=== PATIENT | female | born 2000 | race Caucasian/White ===

== ENCOUNTER 2020-08-29 12:31 | Observation (INO) ==
[2020-08-29 14:54] LABS: Basophils # (auto) 0.03 K/uL (0-0.2); Basophils % (auto) 0.4 %; Eosinophils # (auto) 0.06 K/uL (0-0.5); Eosinophils % (auto) 0.8 %; Hematocrit (blood only) 37.2 % (37-47); Hemoglobin 12.6 g/dL (12.0-16.0); Immature Granulocytes # (auto) 0.05 K/uL (0.00-0.02); Immature Granulocytes % (auto) 0.6 %; Lymphocytes # (auto) 1.31 K/uL (1.2-3.4); Lymphocytes % (auto) 16.5 %; Mean Corpuscular Hemoglobin 29.9 pg (25-34); Mean Corpuscular Hgb Conc 33.9 g/dL (32-36); Mean Corpuscular Volume 88.2 fL (80-100); Mean Platelet Volume 10.2 fL (7.4-10.4); Monocytes # (auto) 0.68 K/uL (0.11-0.59); Monocytes % (auto) 8.6 %; Neutrophils # (auto) 5.79 K/uL (1.4-6.5); Neutrophils % (auto) 73.1 %; Platelet Count 249 K/uL (130-400); RDW Standard Deviation 38.6 fL (36.4-46.3); Red Blood Count 4.22 M/uL (4.2-5.4); White Blood Count 7.92 K/uL (4.8-10.8)
[2020-08-29 15:09] LABS: Alanine Aminotransferase 15 U/L (12-78); Albumin Level 3.3 gm/dl (3.4-5.0); Aspartate Aminotransferase 8 U/L (15-37); BUN Creatinine Ratio 8.9 (10-20); Bilirubin Direct 0.2 mg/dl (0-0.2); Blood Urea Nitrogen 8 mg/dl (7-18); Calcium 9.6 mg/dl (8.5-10.1); Carbon Dioxide 26 mmol/L (21-32); Chloride 104 mmol/L (98-107); Creatinine Clr Calc Pharmacy 87.3 ml/min; Est GFR (African American) 103.8; Est GFR (Non-African American) 89.6; Glucose 87 mg/dl (70-99); Potassium 3.6 mmol/L (3.5-5.1); Sodium 138 mmol/L (136-145)
[2020-08-29 15:15] LABS: Alkaline Phosphatase 48 U/L (45-117); Bilirubin,Total 0.5 mg/dl (0.2-1); Lipase 4247 U/L (73-393); Troponin I < 0.015 ng/ml (0-0.045)
[2020-08-29 15:18] LABS: INR 0.9 (0.9-1.1); Prothrombin Time 9.6 Seconds (9.0-12.0)
--- NOTE | 2020-08-29 15:23 | XRay Report ---
XR abdomen 2V w PA chest CLINICAL HISTORY: epigastric pain sob COMPARISON STUDY: No previous studies for comparison. FINDINGS: Erect chest reveals no free air. There is no focal pulmonary consolidation. Erect and supin e views the abdomen reveal no abnormally dilated loops of large or small bowel. There are no transiti on zones to indicate bowel obstruction. There are no calcifications suspicious for urinary tract calc lexis. IMPRESSION: No evidence of bowel obstruction. No evidence of free air. ACT 112: Negative or not required by law. Electronically signed by: Gerardo Villanueva M.D. 08/29/2020 3:21 PM
[2020-08-29 15:47] LABS: D Dimer 530 ug/L FEU (0-500)
[2020-08-29] MEDS ORDERED: SODIUM CHLORIDE 0.9% 1000ML 1,000 ML IV ONE (16:00)
[2020-08-29] MEDS ORDERED: OPTIRAY 320 125ml IV ONE (16:57)
[2020-08-29 17:06] LABS: Appearance Urine Clear (Clear); Bacteria Urine Automated Negative (Negative); Bilirubin Urine Negative (Negative); Blood Urine Negative (Negative); Color Urine Yellow; Epithelial Cell Urine Auto >30 /lpf (0-5); Glucose Urine UA Negative (Negative); Ketones Urine Negative (Negative); Leukocyte Esterase Urine 1+ (Negative); Nitrite Urine Negative (Negative); Protein Urine Negative (Negative); RBC Urine Automated 0-4 /hpf (0-4); Specific Gravity Urine 1.017 (1.000-1.030); Urobilinogen Urine Negative (Negative); pH Urine 6.5 (4.5-7.5)
--- NOTE | 2020-08-29 17:36 | CT Scan Report ---
CT ANGIOGRAM OF THE CHEST; CT SCAN OF THE ABDOMEN AND PELVIS WITH IV CONTRAST CLINICAL HISTORY: Epigastric abdominal pain. COMPARISON STUDY: Radiographs of the chest and abdomen performed the same day 08/29/2020. TECHNIQUE: Following the IV administration of 119 of Optiray 320, CT angiogram of the chest is perfor med from the upper abdomen to the thoracic inlet utilizing the pulmonary embolus protocol. Images are reviewed in the axial, sagittal, coronal planes. 3-D MIPS images are created and assessed. Subsequen tly, CT scan of the abdomen and pelvis was performed from the lung bases to the proximal femora. Imag es are reviewed in the axial, sagittal, and coronal planes. IV contrast was administered without comp lication. A dose lowering technique was utilized adhering to the principles of ALARA. CT DOSE: 536.66 mGy.cm FINDINGS: CHEST: Thyroid: Imaged portions of the thyroid gland are normal in size and attenuation. Thoracic aorta: The thoracic aorta is normal in caliber and demonstrates standard 3-vessel arch anato my. No dissection is seen. Pulmonary vasculature: The pulmonary trunk is normal in caliber. There are no filling defects identif ied in the main, lobar, or segmental pulmonary arteries to indicate pulmonary embolus. Heart: The heart is normal in size and configuration, and without pericardial effusion. Lungs and pleural spaces: The lungs and pleural spaces are clear. Mediastinum: There is no mediastinal lymphadenopathy. Kelly: Clear. Axillae: There is no axillary lymphadenopathy. Bony thorax: No lytic or blastic lesions are identified. ABDOMEN AND PELVIS: Liver: The contrast-enhanced liver is normal in size, contour, and attenuation. There is no intrahepa tic or ductal dilatation. The hepatic veins and portal veins are patent. Gallbladder: Unremarkable. Spleen: Normal in size and attenuation. Pancreas: Unremarkable. Adrenal glands: Unremarkable. Kidneys: The contrast enhanced kidneys are normal in size and without hydronephrosis. The kidneys enh ance symmetrically. There is a tiny nonobstructing right renal calculus. Abdominal vasculature: The abdominal aorta is normal in course and caliber. Bowel: The small bowel and colon are normal in course and caliber. The appendix is normal as visuali zed. Peritoneum: There is no intraperitoneal free air or abdominal ascites. Lymphadenopathy: None. Pelvic viscera: The bladder, uterus, and adnexa are normal as visualized. Skeletal structures: No lytic or blastic lesions are seen. IMPRESSION: 1. There is no evidence of pulmonary embolus in the main, lobar, or segmental pulmonary arteries. 2. The lungs are clear. 3. There are no acute infectious or inflammatory findings in the abdomen or pelvis. ACT 112: Negative or not required by law. Electronically signed by: Jerrod Escoto M.D. 08/29/2020 5:35 PM
[2020-08-29] MEDS ORDERED: CLINDAMYCIN HCL 150 MG CAP PO ONE (18:25)
[2020-08-29] MEDS: LACTATED RINGER'S 1,000 ML IV SCH (18:49)
--- NOTE | 2020-08-29 19:05 | History & Physical Report ---
Date of Service August 29, 2020 Assessment & Plan (1) Serum lipase elevation: Lipase- 4247 - No abscess or pancreas edema noted on CT scan, no other evidence of organ dysfunction - May be early in the course - Lipids pending, no family history of hypertriglyceridemia - No Gall stone - ? 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 Last weekend the patient experienced episode of fever, chills, and throat discomfort. This was similar to what she experienced with her [employer] LOCATION MANAGER so she went to urgent care. At urgent care she was diagnosed with pharyngitis and placed on Cleocin. The patient symptoms of her sore throat improved, but she started experiencing abdominal pain over the past 2 days. The pain is located in the center of her abdomen, it is sharp and stabbing in nature. It is not does not get worse with eating or not eating. The pain in constant in nature. She drinks on the weekend with variable amount depending on the weekend. 5 drinks this past Wednesday. The patient last ate this morning at 0800 with a bagel. HCG negative, last menstrual period is last week and is normally regular, Covid test is negative. Allergies Allergy/AdvReac Type Severity Reaction Status Date / Time No Known Allergies Allergy Verified 08/29/20 15:11 Home Medications Medication Instructions Recorded Confirmed Type clindamycin HCl 300 mg PO QID 08/29/20 08/29/20 History drospirenone-ethinyl estradiol 1 tab PO PM 08/29/20 08/29/20 History Past Med/Surg History Medical History (Updated 08/29/20 @ 19:20 by ODESSA Iniguez) COVID-19 No significant past medical history Sore throat Surgical History (Updated 08/29/20 @ 19:09 by ODESSA Iniguez) H/O wisdom tooth extraction History of nasal septoplasty History of rhinoplasty Family History (Updated 08/29/20 @ 19:11 by ODESSA Iniguez) Mother Hypertension Dyslipidemia Father Hypertension Dyslipidemia Social History Smoking Status: Never smoker Hx Alcohol Use: Yes Alcohol type: beer, wine and hard liquor Hx Substance Use: No Preferred Language: Italian Communication Ability: Effective Replenishment Analyst Required: No Beliefs That Will Affect Care: None Current Living Situation: Alone Other Information That Helps Us Care for You: No Feels Safe at Home: Yes Safety Concerns: Feels Safe At This Time Assistive Devices: None Review of Systems Review of Systems: REVIEW OF SYSTEMS: Constitutional: No current fever, sweats or chills Eyes: No diplopia, no worsening or blurred vision ENT: (+) pain swallowing, throat sore, normal hearing, no trouble swallowing Respiratory: No cough, sputum, dyspnea at rest or on exertion Cardiovascular: No chest pain, tightness or palpitations Abdomen: (+) pain, nausea, vomiting, diarrhea or constipation Musculoskeletal: No joint pain, calf pain, swelling Neurologic: No weakness, numbness/tingling, or balance problems Psychiatric: No anxiety or depression Skin: No rash or itch Physical Exam Physical Exam: PHYSICAL EXAM: General: awake, alert, no apparent distress Head: Normocephalic, atraumatic ENT: PERRL, EOMI, no pharyngeal exudate, mucous membranes moist Neuro: AAO x 3, speech clear and appropriate, strength intact bilaterally 5/5, sensation intact and equal all extremities. Chest: equal rise and fall of the chest, no accessory muscle use, no heaves or thrills, Clear to auscultation, on room air, Cardiac: Regular rate and rhythm, telemetry reviewed, skin warm dry, cap refill <3 seconds, peripheral pulses +2 GI: NABS x 4 quadrants, soft, tender to palpation, no rebound, guarding or tenderness, negative yo's, poon turners, negative heel tap : Spontaneously voiding, no pain, no CVA tenderness, Extremities: Normal inspection, no peripheral edema or erythema, calfs nontender to palpation Psych: Normal mood and affect Skin: no rash or erythema Results & Data Results & Data ([facility]) Vital Signs (Past 12 Hours) Vital Signs Temp Pulse Pulse Resp BP BP Pulse Ox 08/29/20 18:22 88 18 133/79 97 08/29/20 14:48 99 08/29/20 12:34 36.8 C 113 H 17 136/[address] ANGIOGRAM OF THE CHEST; CT SCAN OF THE ABDOMEN AND PELVIS WITH IV CONTRAST CLINICAL HISTORY: Epigastric abdominal pain. COMPARISON STUDY: Radiographs of the chest and abdomen performed the same day 08/29/2020. TECHNIQUE: Following the IV administration of 119 of Optiray 320, CT angiogram of the chest is performed from the upper abdomen to the thoracic inlet utilizing the pulmonary embolus protocol. Images are reviewed in the axial, sagittal, coronal planes. 3-D MIPS images are created and assessed. Subsequently, CT scan of the abdomen and pelvis was performed from the lung bases to the proximal femora. Images are reviewed in the axial, sagittal, and coronal planes. IV contrast was administered without complication. A dose lowering technique was utilized adhering to the principles of ALARA. CT DOSE: 536.66 mGy.cm FINDINGS: CHEST: Thyroid: Imaged portions of the thyroid gland are normal in size and attenuation. Thoracic aorta: The thoracic aorta is normal in caliber and demonstrates standard 3-vessel arch anatomy. No dissection is seen. Pulmonary vasculature: The pulmonary trunk is normal in caliber. There are no filling defects identified in the main, lobar, or segmental pulmonary arteries to indicate pulmonary embolus. Heart: The heart is normal in size and configuration, and without pericardial effusion. Lungs and pleural spaces: The lungs and pleural spaces are clear. Mediastinum: There is no mediastinal lymphadenopathy. Kelly: Clear. Axillae: There is no axillary lymphadenopathy. Bony thorax: No lytic or blastic lesions are identified. ABDOMEN AND PELVIS: Liver: The contrast-enhanced liver is normal in size, contour, and attenuation. There is no intrahepatic or ductal dilatation. The hepatic veins and portal veins are patent. Gallbladder: Unremarkable. Spleen: Normal in size and attenuation. Pancreas: Unremarkable. Adrenal glands: Unremarkable. Kidneys: The contrast enhanced kidneys are normal in size and without hydronephrosis. The kidneys enhance symmetrically. There is a tiny nonobstructing right renal calculus. Abdominal vasculature: The abdominal aorta is normal in course and caliber. Bowel: The small bowel and colon are normal in course and caliber. The appendix is normal as visualized. Peritoneum: There is no intraperitoneal free air or abdominal ascites. Lymphadenopathy: None. Pelvic viscera: The bladder, uterus, and adnexa are normal as visualized. Skeletal structures: No lytic or blastic lesions are seen. FINDINGS: Erect chest reveals no free air. There is no focal pulmonary consolidation. Erect and supine views the abdomen reveal no abnormally dilated loops of large or small bowel. There are no transition zones to indicate bowel obstruction. There are no calcifications suspicious for urinary tract calculi. IMPRESSION: No evidence of bowel obstruction. No evidence of free air. XR abdomen 2V w PA chest CLINICAL HISTORY: epigastric pain sob COMPARISON STUDY: No previous studies for comparison. FINDINGS: Erect chest reveals no free air. There is no focal pulmonary consolidation. Erect and supine views the abdomen reveal no abnormally dilated loops of large or small bowel. There are no transition zones to indicate bowel obstruction. There are no calcifications suspicious for urinary tract calculi. IMPRESSION: No evidence of bowel obstruction. No evidence of free air. Medications Administered Lactated Ringer's (Lr) 1,000 mls @ 250 mls/hr IV .Q4H MERVIN Stop: 09/28/20 18:14 Last Admin: 08/29/20 18:49 Dose: 250 mls/hr Documented by: [id number] Discontinued Medications Clindamycin HCl (Clindamycin Hcl 150 Mg Cap) 300 mg PO NOW ONE Stop: 08/29/20 18:26 Last Admin: 08/29/20 18:49 Dose: 300 mg Documented by: [id number] Sodium Chloride (Nss 1000ml) 1,000 mls @ 999 mls/hr IV .Q1H1M ONE Stop: 08/29/20 17:00 Last Infusion: 08/29/20 17:57 Dose: 0 mls/hr Documented by: [id number] Admin: 08/29/20 16:55 Dose: 999 mls/hr Documented by: [id number] Ioversol (Optiray 320 125ml) 119 ml IV ONCE ONE Stop: 08/29/20 16:58 Last Admin: 08/29/20 16:59 Dose: 119 ml Documented by: [id number] Code Status & VTE Plan Code Status Full VTE Prophylaxis Plan VTE Prophylaxis will be ordered: No Reason for no VTE mechanical prophylaxis: Treatment not indicated Supervising Physician Co-Signing Physician Notes Attending Attestation & Admission Note: Pt seen/examined, chart reviewed, care plan d/w ODESSA Barber. I agree with the chang components of his documentation. 20yo female presenting with epigastric abd pain x 48 hours. This was preceded by acute pharyngitis diagnosed Wednesday of this week at local urgent care. Rapid strep/throat culture/mono/covid testing were not done. Treated empirically with clindamycin. Pt admits to drinking heavily last Wednesday (several shots and spiked seltzers) with friends, followed by fevers/chills/sore throat late that night and into Wednesday. Had COVID-19 - lab confirmed - fall 2019. PMH, PSH, allergies, meds, sochx, famhx - reviewed gen - NAD, nontoxic HEENT - tonsils injected, left tonsil 2-3+, right tonsil 2+, scant exudate; uvula midline neck - multiple cervical lymph nodes b/l heart - RRR, s1 s2 lungs - CTA b/l abd - tender epigastric region w/ palpation, BS+, no HSM ext - no edema skin - no rash labs, CT imaging - reviewed HCG negative A/P: 1. acute pancreatitis - suspect viral etiology +/- etoh (acute pharyngitis and etoh consumption occurred about the same time). Gall bladder normal on CT. Calcium wnl. Agree w/ checking trigs. Consider MRCP - r/o pancreatic divisum. NPO, LR at 250cc/hr, pain meds. Although patient had COVID in 2019, would repeat another COVID test as COVID could cause #1 and #2. 2. acute pharyngitis - finish clindamycin course initiated this past Wednesday. I am not aware that mono causes pancreatitis. Defer on mono testing for now. Pharyngitis is clinically improved per patient. Cem Myrick MD PG Care Time/CCT Total # of Minutes Spent Total Time Spent with Patient: Total time spent is greater than 50% in coordination of care (as documented) at patient's floor/unit and/or counseling patient: Coding Level of Care Code 02810 OBS Care - Level 3 Diagnoses Serum lipase elevation R74.8 Abdominal pain R10.13 Abdominal location: epigastric Sore throat J02.9 (1) Abdominal pain Abdominal location: epigastric Qualified Code(s): R10.13 - Epigastric pain
--- NOTE | 2020-08-29 20:11 | Emergency Department Note ---
History of Present Illness General Chief Complaint: Abdominal Pain Stated Complaint: POSSIBLE LUNG INFECTION - REFERRED BY Time Seen by Provider: 08/29/20 14:19 History of Present Illness Provider Complaint: abdominal pain Onset (ago): 6 day(s) Pain Consistency: constant Location: epigastric Radiation: none Migration to: no migration Severity: moderate Maximum Pain Intensity: 6 Current Pain Intensity: 6 Quality: + cramping, + stabbing and + sharp Relieved By: + nothing Exacerbated By: + nothing Context: + recent antibiotic use (Currently on clindamycin for pharyngitis); no possible food poisoning, no sick contacts, no recent surgery/procedure and no recent injury Associated Symptoms: + nausea, + vomiting, + diarrhea, + fever (T-max 1-2.4 re solved 3 days ago.) and + breathing difficulty; no dysuria, no hematemesis, no hematochezia, no melena, no hematuria, no syncope, no headache and no chest pain Patient reports she has a history of a peritonsillar abscess. Patient states she began having throat pain on Wednesday and went to [facility] and was put on clindamycin. She did not have a peritonsillar abscess at that time and she states that since she has been on the clindamycin her throat pain has improved. She states she thinks she caught the infection earlier before turned into a peritonsillar abscess. Patient reports she was having nausea and vomiting that resolved on Wednesday. She also reports having T-max of 102.4 that was also resolved on Wednesday. Patient also reports some difficulty in breathing. She reports her discomfort is worse when she takes a deep breath. No chest pain. Related Data Last Menstrual Period: one week ago Home Medications Medication Instructions Recorded Confirmed Type clindamycin HCl 300 mg PO QID 08/29/20 08/29/20 History drospirenone-ethinyl estradiol 1 tab PO PM 08/29/20 08/29/20 History Allergies Allergy/AdvReac Type Severity Reaction Status Date / Time No Known Allergies Allergy Verified 08/29/20 15:11 Past Med/Surg History Medical History COVID-19 No significant past medical history Sore throat Surgical History H/O wisdom tooth extraction History of nasal septoplasty History of rhinoplasty Family History Mother Hypertension Dyslipidemia Father Hypertension Dyslipidemia Social History Smoking Status: Never smoker Hx Alcohol Use: Yes Alcohol type: beer, wine and hard liquor Hx Substance Use: No Preferred Language: Cambodian Communication Ability: Effective Stone Sawyer Required: No Beliefs That Will Affect Care: None Current Living Situation: Alone Other Information That Helps Us Care for You: No Feels Safe at Home: Yes Safety Concerns: Feels Safe At This Time Assistive Devices: None Review of Systems A total of 10 systems reviewed and were otherwise negative Physical Exam Vital Signs: Vital Signs - 24 hr 08/29/20 12:34 08/29/20 14:48 08/29/20 18:22 Temperature 36.8 C Temperature Source Temporal Artery Sc an Pulse Rate 113 H Pulse Rate [Right Finger] 88 Respiratory Rate 17 18 Respiratory Effort / Characteristics Non-Labored Sponta neous Respiratory Depth Normal Blood Pressure 136/93 Blood Pressure [Ri ght Arm] 133/79 Blood Pressure Denise n 107 Blood Pressure Denise n [Right Arm] 97 Pulse Oximetry 98 99 97 Oxygen Delivery Me thod Room Air Room Air Sepsis Recent Feve r Within 48 Hours No Sepsis New/Unexpla ined Change in Men veronica Status No Sepsis Action Take n by Nursing No Action Required 08/29/20 19:54 Temperature Temperature Source Pulse Rate Pulse Rate [Right Finger] 80 Respiratory Rate 18 Respiratory Effort / Characteristics Respiratory Depth Blood Pressure Blood Pressure [Ri ght Arm] 130/75 Blood Pressure Denise n Blood Pressure Denise n [Right Arm] 93 Pulse Oximetry 97 Oxygen Delivery Me thod Room Air Sepsis Recent Feve r Within 48 Hours Sepsis New/Unexpla ined Change in Men veronica Status Sepsis Action Take n by Nursing Physical Exam: Physical Exam GENERAL: She is oriented to person, place, and time. She appears well-developed and well-nourished. She does not appear distressed. HENT: Exam performed. -Head: Normocephalic and atraumatic. -Right Ear: External ear normal. No mastoid tenderness. -Left Ear: External ear normal. No mastoid tenderness. -Mouth/Throat: No trismus in the jaw. No dental abscesses or uvula swelling. Right-sided pharyngeal exudate. Uvula midline. No tonsillar abscesses. EYES: Conjunctivae and EOM are normal. Pupils are equal, round, and reactive to light. Right eye exhibits no discharge. Left eye exhibits no discharge. No scleral icterus. NECK: Normal range of motion. Neck supple. No JVD present. No spinous process tenderness present. No carotid bruit present. No rigidity. No tracheal deviation and normal range of motion present. No Brudzinski's sign and no Kernig's sign noted. CV: Tachycardic rate, regular rhythm, normal heart sounds and intact distal pulses. There is no peripheral edema. Palpable radial pulses bue. PULM/CHEST: Effort normal and breath sounds normal. No respiratory distress. No stridor. She has no wheezes. She has no rales. -Chest Wall: She exhibits no tenderness. ABD: The abdomen is soft. Bowel sounds are normal. She has no distension. No mass is present. There is tenderness to palpation of the epigastric area. There is no rebound, no guarding, no Zamora's sign and no tenderness at McBurney's point. Rovsig negative MUSC/SKEL: Normal range of motion. There is no peripheral edema, tenderness or deformity. LYMPH: No cervical adenopathy. NEURO: She is alert and oriented to person, place, and time. She has normal strength. No cranial nerve deficit or sensory deficit. Coordination and gait normal. GCS eye subscore is 4. GCS verbal subscore is 5. GCS motor subscore is 6. Cerebellar tests wnl. SKIN: Skin is warm and dry. She is not diaphoretic. PSYCH: She has a normal mood and affect. Behavior is normal. Judgment and thought content normal. Course Course 1419: The patient was evaluated in room C11. A complete history and physical exam was performed. Cardiac monitoring: An order was placed for continuous cardiac monitoring. The monitor shows a rate of 110 with sinus tachycardia rhythm 1400: Vital signs stable. Labs show an elevated D-dimer 530 elevated lipase cardiac 4000. Will obtain CTA of the chest and CT of the abdomen. 181: Vital signs stable. CTA shows no evidence of PE. CT of the abdomen shows no evidence of inflammation of the pancreas. I did discuss the case with GI on- call Dr. Montiel who stated it is very odd for this type of lipase elevation in a patient of this age. He recommends that the patient be admitted overnight and kept NPO. He recommends LR 250 cc an hour and he agrees to be on consult. He states admit to the medicine service. Discussed the case with [facility] hospitalist Gerald who stated he will evaluate the patient for admission and treatment to Dr. Myrick. I discussed the plan with the patient and her mother on the patient's cell phone who are in agreement for the overnight admission. Patient states that she did not take her clindamycin earlier today so 1 dose of clindamycin will be given in the emergency department. Administered Medications Lactated Ringer's (Lr) 1,000 mls @ 125 mls/hr IV .Q8H MERVIN Stop: 09/28/20 18:14 Last Admin: 08/29/20 18:49 Dose: 250 mls/hr Documented by: [id number] Discontinued Medications Clindamycin HCl (Clindamycin Hcl 150 Mg Cap) 300 mg PO NOW ONE Stop: 08/29/20 18:26 Last Admin: 08/29/20 18:49 Dose: 300 mg Documented by: [id number] Sodium Chloride (Nss 1000ml) 1,000 mls @ 999 mls/hr IV .Q1H1M ONE Stop: 08/29/20 17:00 Last Infusion: 08/29/20 17:57 Dose: 0 mls/hr Documented by: [id number] Admin: 08/29/20 16:55 Dose: 999 mls/hr Documented by: [id number] Ioversol (Optiray 320 125ml) 119 ml IV ONCE ONE Stop: 08/29/20 16:58 Last Admin: 08/29/20 16:59 Dose: 119 ml Documented by: [id number] Medical Decision Making Laboratory Data Result diagrams: 08/29/20 14:44 08/29/20 14:44 Lab Results 08/29/20 08/29/20 08/29/20 Range/Units 14:44 14:44 14:44 WBC 7.92 (4.8-10.8) K/uL RBC 4.22 (4.2-5.4) M/uL Hgb 12.6 (12.0-16.0) g/dL Hct 37.2 (37-47) % MCV 88.2 (80-100) fL MCH 29.9 (25-34) pg MCHC 33.9 (32-36) g/dL RDW Std Deviation 38.6 (36.4-46.3) fL RDW Coeff of Yvette 12.0 (11.5-14.5) % Plt Count 249 (130-400) K/uL MPV 10.2 (7.4-10.4) fL Immature Gran % (Auto) 0.6 % Neut % (Auto) 73.1 % Lymph % (Auto) 16.5 % Citrus % (Auto) 8.6 % Eos % (Auto) 0.8 % Baso % (Auto) 0.4 % Neut # (Auto) 5.79 (1.4-6.5) K/uL Lymph # (Auto) 1.31 (1.2-3.4) K/uL Citrus # (Auto) 0.68 H (0.11-0.59) K/uL Eos # (Auto) 0.06 (0-0.5) K/uL Baso # (Auto) 0.03 (0-0.2) K/uL Immature Gran # (Auto) 0.05 H (0.00-0.02) K/uL PT 9.6 (9.0-12.0) Seconds INR 0.9 (0.9-1.1) APTT 25.0 (21.0-31.0) Seconds PTT Ratio 1.0 D-Dimer (0-500) ug/L FEU Sodium 138 (136-145) mmol/L Potassium 3.6 (3.5-5.1) mmol/L Chloride 104 (98-107) mmol/L Carbon Dioxide 26 (21-32) mmol/L Anion Gap 8.0 (3-11) BUN 8 (7-18) mg/dl Creatinine 0.91 (0.6-1.2) mg/dl Est Cr Clr Drug Dosing 87.3 ml/min Est GFR ( Amer) 103.8 Est GFR (Non-Af Amer) 89.6 BUN/Creatinine Ratio 8.9 L (10-20) Glucose 87 (70-99) mg/dl Calcium 9.6 (8.5-10.1) mg/dl Total Bilirubin 0.5 (0.2-1) mg/dl Direct Bilirubin 0.2 (0-0.2) mg/dl AST 8 L (15-37) U/L ALT 15 (12-78) U/L Alkaline Phosphatase 48 (45-117) U/L Troponin I < 0.015 (0-0.045) ng/ml Total Protein 8.0 (6.4-8.2) gm/dl Albumin 3.3 L (3.4-5.0) gm/dl Lipase 4247 H (73-393) U/L Urine Color Urine Appearance (Clear) Urine pH (4.5-7.5) Ur Specific [place] (1.000-1.030) Urine Protein (Negative) Urine Glucose (UA) (Negative) Urine Ketones (Negative) Urine Blood (Negative) Urine Nitrite (Negative) Urine Bilirubin (Negative) Urine Urobilinogen (Negative) Ur Leukocyte Esterase (Negative) Urine WBC (Auto) (0-5) /hpf Urine RBC (Auto) (0-4) /hpf U Hyaline Cast (Auto) (0-5) /lpf U Epithel Cells (Auto) (0-5) /lpf Urine Bacteria (Auto) (Negative) POC Ur Test (NEG) COVID-19 Eval Order SARS-CoV-2, RNA, NAAT (NEGATIVE) 08/29/20 08/29/20 08/29/20 Range/Units 14:44 16:55 17:15 WBC (4.8-10.8) K/uL RBC (4.2-5.4) M/uL Hgb (12.0-16.0) g/dL Hct (37-47) % MCV (80-100) fL MCH (25-34) pg MCHC (32-36) g/dL RDW Std Deviation (36.4-46.3) fL RDW Coeff of Yvette (11.5-14.5) % Plt Count (130-400) K/uL MPV (7.4-10.4) fL Immature Gran % (Auto) % Neut % (Auto) % Lymph % (Auto) % Citrus % (Auto) % Eos % (Auto) % Baso % (Auto) % Neut # (Auto) (1.4-6.5) K/uL Lymph # (Auto) (1.2-3.4) K/uL Citrus # (Auto) (0.11-0.59) K/uL Eos # (Auto) (0-0.5) K/uL Baso # (Auto) (0-0.2) K/uL Immature Gran # (Auto) (0.00-0.02) K/uL PT (9.0-12.0) Seconds INR (0.9-1.1) APTT (21.0-31.0) Seconds PTT Ratio D-Dimer 530 H* (0-500) ug/L FEU Sodium (136-145) mmol/L Potassium (3.5-5.1) mmol/L Chloride (98-107) mmol/L Carbon Dioxide (21-32) mmol/L Anion Gap (3-11) BUN (7-18) mg/dl Creatinine (0.6-1.2) mg/dl Est Cr Clr Drug Dosing ml/min Est GFR ( Amer) Est GFR (Non-Af Amer) BUN/Creatinine Ratio (10-20) Glucose (70-99) mg/dl Calcium (8.5-10.1) mg/dl Total Bilirubin (0.2-1) mg/dl Direct Bilirubin (0-0.2) mg/dl AST (15-37) U/L ALT (12-78) U/L Alkaline Phosphatase (45-117) U/L Troponin I (0-0.045) ng/ml Total Protein (6.4-8.2) gm/dl Albumin (3.4-5.0) gm/dl Lipase (73-393) U/L Urine Color Yellow Urine Appearance Clear (Clear) Urine pH 6.5 (4.5-7.5) Ur Specific [place] 1.017 (1.000-1.030) Urine Protein Negative (Negative) Urine Glucose (UA) Negative (Negative) Urine Ketones Negative (Negative) Urine Blood Negative (Negative) Urine Nitrite Negative (Negative) Urine Bilirubin Negative (Negative) Urine Urobilinogen Negative (Negative) Ur Leukocyte Esterase 1+ H (Negative) Urine WBC (Auto) 5-10 H (0-5) /hpf Urine RBC (Auto) 0-4 (0-4) /hpf U Hyaline Cast (Auto) 1-5 (0-5) /lpf U Epithel Cells (Auto) >30 H (0-5) /lpf Urine Bacteria (Auto) Negative (Negative) POC Ur Test NEG (NEG) COVID-19 Eval Order SARS-CoV-2, RNA, NAAT (NEGATIVE) 02/11/21 02/11/21 Range/Units 18:45 18:45 WBC (4.8-10.8) K/uL RBC (4.2-5.4) M/uL Hgb (12.0-16.0) g/dL Hct (37-47) % MCV (80-100) fL MCH (25-34) pg MCHC (32-36) g/dL RDW Std Deviation (36.4-46.3) fL RDW Coeff of Yvette (11.5-14.5) % Plt Count (130-400) K/uL MPV (7.4-10.4) fL Immature Gran % (Auto) % Neut % (Auto) % Lymph % (Auto) % Citrus % (Auto) % Eos % (Auto) % Baso % (Auto) % Neut # (Auto) (1.4-6.5) K/uL Lymph # (Auto) (1.2-3.4) K/uL Citrus # (Auto) (0.11-0.59) K/uL Eos # (Auto) (0-0.5) K/uL Baso # (Auto) (0-0.2) K/uL Immature Gran # (Auto) (0.00-0.02) K/uL PT (9.0-12.0) Seconds INR (0.9-1.1) APTT (21.0-31.0) Seconds PTT Ratio D-Dimer (0-500) ug/L FEU Sodium (136-145) mmol/L Potassium (3.5-5.1) mmol/L Chloride (98-107) mmol/L Carbon Dioxide (21-32) mmol/L Anion Gap (3-11) BUN (7-18) mg/dl Creatinine (0.6-1.2) mg/dl Est Cr Clr Drug Dosing ml/min Est GFR ( Amer) Est GFR (Non-Af Amer) BUN/Creatinine Ratio (10-20) Glucose (70-99) mg/dl Calcium (8.5-10.1) mg/dl Total Bilirubin (0.2-1) mg/dl Direct Bilirubin (0-0.2) mg/dl AST (15-37) U/L ALT (12-78) U/L Alkaline Phosphatase (45-117) U/L Troponin I (0-0.045) ng/ml Total Protein (6.4-8.2) gm/dl Albumin (3.4-5.0) gm/dl Lipase (73-393) U/L Urine Color Urine Appearance (Clear) Urine pH (4.5-7.5) Ur Specific [place] (1.000-1.030) Urine Protein (Negative) Urine Glucose (UA) (Negative) Urine Ketones (Negative) Urine Blood (Negative) Urine Nitrite (Negative) Urine Bilirubin (Negative) Urine Urobilinogen (Negative) Ur Leukocyte Esterase (Negative) Urine WBC (Auto) (0-5) /hpf Urine RBC (Auto) (0-4) /hpf U Hyaline Cast (Auto) (0-5) /lpf U Epithel Cells (Auto) (0-5) /lpf Urine Bacteria (Auto) (Negative) POC Ur Test (NEG) COVID-19 Eval Order Covid19 [facility]Now [facility] SARS-CoV-2, RNA, NAAT NEGATIVE (NEGATIVE) Imaging Data Radiologist's Impression: CT ANGIOGRAM OF THE CHEST; CT SCAN OF THE ABDOMEN AND PELVIS WITH IV CONTRAST CLINICAL HISTORY: Epigastric abdominal pain. COMPARISON STUDY: Radiographs of the chest and abdomen performed the same day . TECHNIQUE: Following the IV administration of 119 of Optiray 320, CT angiogram of the chest is performed from the upper abdomen to the thoracic inlet utilizing the pulmonary embolus protocol. Images are reviewed in the axial, sagittal, coronal planes. 3-D MIPS images are created and assessed. Subsequently, CT scan of the abdomen and pelvis was performed from the lung bases to the proximal femora. Images are reviewed in the axial, sagittal, and coronal planes. IV contrast was administered without complication. A dose lowering technique was utilized adhering to the principles of ALARA. CT DOSE: 536.66 mGy.cm FINDINGS: CHEST: Thyroid: Imaged portions of the thyroid gland are normal in size and attenuation. Thoracic aorta: The thoracic aorta is normal in caliber and demonstrates standard 3-vessel arch anatomy. No dissection is seen. Pulmonary vasculature: The pulmonary trunk is normal in caliber. There are no filling defects identified in the main, lobar, or segmental pulmonary arteries to indicate pulmonary embolus. Heart: The heart is normal in size and configuration, and without pericardial effusion. Lungs and pleural spaces: The lungs and pleural spaces are clear. Mediastinum: There is no mediastinal lymphadenopathy. Kelly: Clear. Axillae: There is no axillary lymphadenopathy. Bony thorax: No lytic or blastic lesions are identified. ABDOMEN AND PELVIS: Liver: The contrast-enhanced liver is normal in size, contour, and attenuation. There is no intrahepatic or ductal dilatation. The hepatic veins and portal veins are patent. Gallbladder: Unremarkable. Spleen: Normal in size and attenuation. Pancreas: Unremarkable. Adrenal glands: Unremarkable. Kidneys: The contrast enhanced kidneys are normal in size and without hydronephrosis. The kidneys enhance symmetrically. There is a tiny nonobstructing right renal calculus. Abdominal vasculature: The abdominal aorta is normal in course and caliber. Bowel: The small bowel and colon are normal in course and caliber. The appendix is normal as visualized. Peritoneum: There is no intraperitoneal free air or abdominal ascites. Lymphadenopathy: None. Pelvic viscera: The bladder, uterus, and adnexa are normal as visualized. Skeletal structures: No lytic or blastic lesions are seen. IMPRESSION: 1. There is no evidence of pulmonary embolus in the main, lobar, or segmental pulmonary arteries. 2. The lungs are clear. 3. There are no acute infectious or inflammatory findings in the abdomen or pelvis. ACT 112: Negative or not required by law. Electronically signed by: Jerrod Escoto M.D. 08/29/2020 5:35 PM Dictated: 08/29/201726 Transcribed: 08/29/201726 XR abdomen 2V w PA chest CLINICAL HISTORY: epigastric pain sob COMPARISON STUDY: No previous studies for comparison. FINDINGS: Erect chest reveals no free air. There is no focal pulmonary consolidation. Erect and supine views the abdomen reveal no abnormally dilated loops of large or small bowel. There are no transition zones to indicate bowel obstruction. There are no calcifications suspicious for urinary tract calculi. IMPRESSION: No evidence of bowel obstruction. No evidence of free air. ACT 112: Negative or not required by law. Electronically signed by: Gerardo Villanueva M.D. 08/29/2020 3:21 PM Dictated: 08/29/20 1521 Transcribed: 08/29/20 152 ECG Data Rate (beats per minute): 83 Rhythm: normal sinus Findings: no ST depression, no ST elevation and no prolonged QT MDM Narrative 1419: The patient was evaluated in room C11. A complete history and physical exam was performed. Cardiac monitoring: An order was placed for continuous cardiac monitoring. The monitor shows a rate of 110 with sinus tachycardia rhythm 1400: Vital signs stable. Labs show an elevated D-dimer 530 elevated lipase cardiac 4000. Will obtain CTA of the chest and CT of the abdomen. 1811: Vital signs stable. CTA shows no evidence of PE. CT of the abdomen shows no evidence of inflammation of the pancreas. I did discuss the case with GI on- call Dr. Montiel who stated it is very odd for this type of lipase elevation in a patient of this age. He recommends that the patient be admitted overnight and kept NPO. He recommends LR 250 cc an hour and he agrees to be on consult. He states admit to the medicine service. Discussed the case with [facility] hospitalist Gerald who stated he will evaluate the patient for admission and treatment to Dr. Myrick. I discussed the plan with the patient and her mother on the patient's cell phone who are in agreement for the overnight admission. Patient states that she did not take her clindamycin earlier today so 1 dose of clindamycin will be given in the emergency department. Impression & Plan Pancreatitis Discharge Plan Visit Data Chief Complaint: Abdominal Pain Stated Complaint: POSSIBLE LUNG INFECTION - REFERRED BY ED Provider: Brenden Shaffer Discharge Problem: Pancreatitis Patient Disposition: Admitted As Inpatient Forms Stand Alone Forms: My [facility] Prescriptions Prescriptions: No Action clindamycin HCl 300 mg capsule 300 mg PO QID RF: 0 drospirenone-ethinyl estradiol 3-0.03 mg tablet 1 tab PO PM RF: 0 Referrals Referrals: PCP,NO [Primary Care Provider] - Discharge Problem: Pancreatitis Qualifiers: Chronicity: acute Pancreatitis type: unspecified pancreatitis type Acute pancreatitis complication: no infection or necrosis Qualified Code(s): K85.90 - Acute pancreatitis without necrosis or infection, unspecified
[2020-08-29] MEDS ORDERED: MoRPHine SULFATE 2 MG/ML CARP IV STA (20:17)
[2020-08-29] MEDS ORDERED: FAMOTIDINE 10 MG in SYRINGE 3 ML IV SCH (21:00)
[2020-08-29] MEDS ORDERED: MoRPHine SULFATE 2 MG/ML CARP IV PRN (21:08)
[2020-08-29] MEDS ORDERED: ORAL CONTRACEPTIVE~ORDER AWAITING ACTION SCH (21:30)
[2020-08-29] MEDS: FAMOTIDINE 10 MG in SYRINGE 4 ML IV SCH (23:26)
[2020-08-29] MEDS: CLINDAMYCIN HCL 150 MG CAP PO SCH (23:27)
[2020-08-29] MEDS: PATIENT'S OWN ORAL CONTRACEPTIVE PO SCH (23:27)
[2020-08-30] MEDS: LACTATED RINGER'S 1,000 ML IV SCH ×4 (03:26→19:49)
[2020-08-30 06:37] LABS: Chol HDL Ratio 4; Cholesterol 149 mg/dl (0-200); HDL Cholesterol 38 mg/dl; LDL Cholesterol Calculated 87 mg/dl; Lipase 3464 U/L (73-393); Triglycerides 120 mg/dl (0-150); VLDL Cholesterol 24 mg/dl
[2020-08-30] MEDS: CLINDAMYCIN HCL 150 MG CAP PO SCH ×4 (08:03→22:00)
[2020-08-30] MEDS: FAMOTIDINE 10 MG in SYRINGE 4 ML IV SCH ×2 (08:06→21:59)
--- NOTE | 2020-08-30 09:59 | Gastrointestinal Consultation ---
Date of Consultation August 30, 2020 Assessment & Plan (1) Pancreatitis: (2) Serum lipase elevation: Ddx: infection vs idiopathic vs ETOH vs medication induced although Cleocin is not listed as a known classified medication to cause pancreatitis) vs genetic vs mechanical vs other. Suspect related to infection in combination of excess alcohol consumption/abx. 1. Per guidelines, IV fluid resuscitation should be administered at a rate of 3 ml/kg/hr. Therefore, will increase to 200 ml/hr. 2. Clear liquid diet. If tolerated, can advance to low fat diet. 3. Trend lipase. 4. Counseled on ETOH cessation to reduce risk of recurrence and development of chronic pancreatitis. 5. Continue supportive care with analgesics and antiemetics as needed. Thank you for allowing us to participate in the care of this pleasant patient. If you have any questions or concerns, please do not hesitate to contact us. Supervising Physician Co-Signing Physician Notes Agree with ODESSA Rodriguez as above Abd: Soft, NT, ND, +BS Continue current supportive care with pain medication, IVF, antiemetics as needed Advance diet as tolerated History of Present Illness Reason for Consultation: Acute Pancreatitis Requesting Physician: ODESSA Parrish Attending Physician: Anthony Jimenez MD History of Present Illness Piedad Colon is a very pleasant 20 year-old [employer] student admitted with epigastric pain x 3 days. She states that prior to the onset, she was seen at a local urgent care, dx with acute pharyngitis and placed oral Clindamycin. The following day, she states she was celebrating her birthday with friends and did have a binge drinking episode on 08/24/20. States he felt very nauseated the following day but did not develop abdominal pain until the following Wednesday. Initially, the pain was very localized but over time became more intense, constant and radiation to the back. Concerned, she presented to the ER for further evaluation last evening. On arrival, she did have a CT a/p and laboratory testing which were reviewed. She did not have any leukocytosis or anemia. Renal function was normal. CT without any biliary or pancreatic abnormalities. Liver panel was also normal. Lipase was elevated at 4247. She has been made NPO and started on IV fluids at 125 ml/hr. No family history of gall bladder or pancreatic abnormalities. Allergies Allergy/AdvReac Type Severity Reaction Status Date / Time No Known Allergies Allergy Verified 08/29/20 15:11 Home Medications Medication Instructions Recorded Confirmed Type clindamycin HCl 300 mg PO QID 08/29/20 08/29/20 History drospirenone-ethinyl estradiol 1 tab PO PM 08/29/20 08/29/20 History Patient History Medical History COVID-19 No significant past medical history Sore throat Surgical History H/O wisdom tooth extraction History of nasal septoplasty History of rhinoplasty Family History Mother Hypertension Dyslipidemia Father Hypertension Dyslipidemia Social History Smoking Status: Never smoker Hx Alcohol Use: Yes Alcohol type: beer, wine and hard liquor Hx Substance Use: No Preferred Language: Hong [place]er Communication Ability: Effective Croze Cutter Required: No Beliefs That Will Affect Care: None Current Living Situation: Alone Other Information That Helps Us Care for You: No Feels Safe at Home: Yes Safety Concerns: Feels Safe At This Time Assistive Devices: None Review of Systems Review of Systems: All systems reviewed & are unremarkable except as noted in HPI & below Physical Exam Constitutional: WD/WN, vitals as above Eyes: EOM intact bilaterally Neck: normal appearance Respiratory: normal respiratory effort, lungs clear to auscultation Cardiovascular: Rate/Rhythm: regular rate and regular rhythm Heart Sounds: no gallop and no murmur Gastrointestinal (Abdomen): normal bowel sounds, soft, nontender, no hepatosplenomegaly Inspection/Auscultation: abdomen not distended Musculoskeletal: Extremities: no cyanosis no lower extremity edema Skin: no rashes, warm and dry Neurologic: moves all extremities Psychiatric: A+Ox3, euthymic affect Results & Data ([facility]) Vital Signs (Past 12 Hours) Vital Signs Temp Pulse Pulse Resp BP BP Pulse Ox 08/30/20 07:45 37.0 C 73 16 111/72 97 08/29/20 22:49 37.0 C 80 16 120/76 96 Laboratory Results Abnormal lab results 08/29/20 08/29/20 08/29/20 Range/Units 14:44 14:44 14:44 [place] # (Auto) 0.68 H (0.11-0.59) K/uL Immature Gran # (Auto) 0.05 H (0.00-0.02) K/uL D-Dimer 530 H* (0-500) ug/L FEU BUN/Creatinine Ratio 8.9 L (10-20) AST 8 L (15-37) U/L Albumin 3.3 L (3.4-5.0) gm/dl Lipase 4247 H (73-393) U/L Ur Leukocyte Esterase (Negative) Urine WBC (Auto) (0-5) /hpf U Epithel Cells (Auto) (0-5) /lpf 08/29/20 08/30/20 Range/Units 16:55 05:40 [place] # (Auto) (0.11-0.59) K/uL Immature Gran # (Auto) (0.00-0.02) K/uL D-Dimer (0-500) ug/L FEU BUN/Creatinine Ratio (10-20) AST (15-37) U/L Albumin (3.4-5.0) gm/dl Lipase 3464 H (73-393) U/L Ur Leukocyte Esterase 1+ H (Negative) Urine WBC (Auto) 5-10 H (0-5) /hpf U Epithel Cells (Auto) >30 H (0-5) /lpf PG Care Time/CCT Total # of Minutes Spent Total Time Spent with Patient: Total time spent is greater than 50% in coordination of care (as documented) at patient's floor/unit and/or counseling patient: Coding Level of Care Code 17413 Inpt Consult Level 4 Diagnoses Pancreatitis K85.90 Acute pancreatitis complication: no infection or necrosis Chronicity: acute Pancreatitis type: unspecified pancreatitis type Serum lipase elevation R74.8 (1) Pancreatitis Acute pancreatitis complication: no infection or necrosis Chronicity: acute Pancreatitis type: unspecified pancreatitis type Qualified Code(s): K85.90 - Acute pancreatitis without necrosis or infection, unspecified
--- NOTE | 2020-08-30 12:56 | Hospitalist Progress Note ---
Date of Service August 30, 2020 Assessment & Plan (1) Serum lipase elevation: Likely multifactorial pancreatitis with alcohol, dehydration, and possibly vomiting playing a role. - No abscess or pancreas edema noted on CT scan, no other evidence of organ dysfunction - Seen by GI -> Continue conservative care; advance diet as tolerated. Likely discharge tomorrow. (2) Sore throat: Second episode of peritonsillar issues. First in April 2020 and now. Improving with IV abx, but discussed with her that if it happens again, likely will need aspiration/drainage or even tonsillectomy with ENT. - Continue Cleocin Admission and Anticipated Discharge Date Admission Date: August 29, 2020 Subjective Doing well today. No abdominal pain. Throat is only minimally sore. Reports no fevers/chills, chest pain, shortness of breath, abdominal pain, nausea, or vomiting. Physical Exam Constitutional: WD/WN, vitals as above Eyes: EOM intact bilaterally; no conjunctival abnormality ENMT: Mouth / Teeth: 1. Swollen right tonsil Neck: trachea midline, no thyromegaly normal visual inspection Respiratory: normal respiratory effort, lungs clear to auscultation no respiratory distress Cardiovascular: RRR, no murmur, no edema Gastrointestinal (Abdomen): Inspection/Auscultation: abdomen normal to inspection; abdomen not distended Musculoskeletal: no cyanosis or clubbing, extremities motor strength 5/5 Skin: no rashes, warm and dry Neurologic: moves all extremities and awake Psychiatric: Orientation: alert, oriented to person and cooperative Results & Data Results & Data ([facility]) Vital Signs (Past 12 Hours) Vital Signs Temp Pulse Resp BP Pulse Ox 08/30/20 07:45 37.0 C 73 16 111/72 97 PG Care Time/CCT Total # of Minutes Spent Total Time Spent with Patient: Total time spent is greater than 50% in coordination of care (as documented) at patient's floor/unit and/or counseling patient: Coding Level of Care Code 62778 Subseq Hosp Care Lvl 2 Diagnoses Serum lipase elevation R74.8 Sore throat J02.9
--- NOTE | 2020-08-30 17:57 | Electrocardiogram Report ---
Test Reason : Blood Pressure : / mmHG Vent. Rate : 083 BPM Atrial Rate : 083 BPM P-R Int : 152 ms QRS Dur : 080 ms QT Int : 382 ms P-R-T Axes : 076 059 029 degrees QTc Int : 448 ms Normal sinus rhythm Normal ECG No previous ECGs available Confirmed by Tim Barone ([id number]) on 08/30/2020 5:57:07 PM Referred By: REFERRED SELF Confirmed By:Tim Barone
[2020-08-30] MEDS: PATIENT'S OWN ORAL CONTRACEPTIVE PO SCH (22:00)
[2020-08-31] MEDS: LACTATED RINGER'S 1,000 ML IV SCH ×3 (00:15→09:35)
[2020-08-31 06:30] LABS: Hematocrit (blood only) 29.8 % (37-47); Hemoglobin 10.1 g/dL (12.0-16.0); Mean Corpuscular Hemoglobin 29.7 pg (25-34); Mean Corpuscular Hgb Conc 33.9 g/dL (32-36); Mean Corpuscular Volume 87.6 fL (80-100); Platelet Count 223 K/uL (130-400); RDW Coefficient of Variation 11.8 % (11.5-14.5); RDW Standard Deviation 37.6 fL (36.4-46.3); White Blood Count 5.32 K/uL (4.8-10.8)
[2020-08-31 07:01] LABS: Albumin Level 2.6 gm/dl (3.4-5.0); BUN Creatinine Ratio 10.7 (10-20); Creatinine Clr Calc Pharmacy 105.9 ml/min; Est GFR (African American) 131.1; Est GFR (Non-African American) 113.1; Potassium 3.9 mmol/L (3.5-5.1)
[2020-08-31 07:09] LABS: Albumin Globulin Ratio 0.7 (0.9-2); Bilirubin,Total 0.3 mg/dl (0.2-1); Globulin 3.9 gm/dl (2.5-4.0); Total Protein 6.5 gm/dl (6.4-8.2)
[2020-08-31] MEDS: CLINDAMYCIN HCL 150 MG CAP PO SCH (07:52)
[2020-08-31] MEDS: FAMOTIDINE 10 MG in SYRINGE 4 ML IV SCH (07:53)
--- NOTE | 2020-08-31 15:35 | Discharge Summary ---
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 Last weekend the patient experienced episode of fever, chills, and throat discomfort. This was similar to what she experienced with her COMPONENT TECHNICIAN so she went to urgent care. At urgent care she was diagnosed with pharyngitis and placed on Cleocin. The patient symptoms of her sore throat improved, but she started experiencing abdominal pain over the past 2 days. The pain is located in the center of her abdomen, it is sharp and stabbing in nature. It is not does not get worse with eating or not eating. The pain in constant in nature. She drinks on the weekend with variable amount depending on the weekend. 5 drinks this past Wednesday. The patient last ate this morning at 0800 with a bagel. HCG negative, last menstrual period is last week and is normally regular, Covid test is negative. Principal Diagnosis Pancreatitis - likely from alcohol intake, dehydration, and infection Discharge Exam Constitutional WD/WN, vitals as above Eyes EOM intact bilaterally; no conjunctival abnormality Neck trachea midline, no thyromegaly normal visual inspection Respiratory normal respiratory effort, lungs clear to auscultation no respiratory distress Cardiovascular RRR, no murmur, no edema Gastrointestinal (Abdomen) Inspection/Auscultation: abdomen normal to inspection; abdomen not distended Musculoskeletal no cyanosis or clubbing, extremities motor strength 5/5 Skin no rashes, warm and dry Neurologic moves all extremities and awake Psychiatric Orientation: alert, oriented to person and cooperative Discharge Data Allergies Allergy/AdvReac Type Severity Reaction Status Date / Time No Known Allergies Allergy Verified 08/29/20 15:11 Consultations 08/29/20 18:16 ED Decision to Admit Stat 08/29/20 21:08 Consult Gastroenterology Routine Ordered Studies 08/29/20 16:00 CT abd pelvis IV con only Stat CT angio chest PE protocol Stat Hospital Course (1) Serum lipase elevation: Likely multifactorial pancreatitis with alcohol, dehydration, and possibly vomiting playing a role. - No abscess or pancreas edema noted on CT scan, no other evidence of organ dysfunction - Seen by GI -> Continue conservative care; advance diet as tolerated. - On discharge, eating without a problem, no concerns. Encouraged to abstain entirely from alcohol for several months and also given guidelines for responsible drinking in the future. (2) Sore throat: Second episode of right peritonsillar infection. First in April 2020 and now. Improving with oral abx, but discussed with her that if it happens again, likely will need aspiration/drainage or even tonsillectomy with ENT. - Continue Cleocin - On discharge, right tonsil was no longer overtly swollen. No breathing, speaking, or swallowing issues. No fevers. Encouraged to follow up with ENT or come to the ER again if any issues. Total Time Total Time Spent Total Time Spent (In Minutes): 35 Discharge Plan Discharge Items Patient Disposition: Home - Self-Care Reason For Visit: ABDOMINAL PAIN Discharge Diagnosis: Pancreatitis Activity: Resume your previous activity Non-emergency contact: Primary Care Provider Call non-emergency contact if: your pain is not controlled and your pain is worsening Follow-up/Referrals: PCP,NO [Primary Care Provider] - Diet: Low Fat Addtl Attending Provider Instructions: You were admitted with pancreatitis. This may have been caused by alcohol intake or possibly the medication. The GI team saw you and felt the medication (clindamycin) was unlikely to be causing your issue because pancreatitis is not very commonly associated with clindamycin. It is probably more likely that your alcohol intake contributed. Please try to refrain from alcohol as this could happen again if you continue to drink at that amount. As we discussed, the recommendations for women and alcohol are no more than a total of 7 drinks over the course of a week. This means one 12 oz. beer (of normal ABV (5.5% - 6.0%)), one glass of wine (4.5 oz.), or one shot of liquor (1.5 oz.). Binge drinking is defined as more than 4 drinks for a woman. Finally, for your tonsil, it seems like it is healing on the antibiotics. Please finish your course as prescribed. If this happens again, you will probably need drainage of the tonsil or even a tonsillectomy and would have to be seen by an ENT doctor. Pending Studies at Discharge: No Stand-Alone Forms: My [facility], Smoking Cessation Medications and DC Order Prescriptions: Continued clindamycin HCl 300 mg capsule 300 mg PO QID RF: 0 drospirenone-ethinyl estradiol 3-0.03 mg tablet 1 tab PO PM RF: 0 Discharge Orders: Discharge Order (Routine); Ordered 08/31/20 Ordered By: Anthony Jimenez Admission Data Admit Date/Time: 08/29/20 19:45 Attending Provider: Anthony Jimenez Admit Provider: Christian Barber Primary Care Provider: PCP,NO Other Providers: Suhail Montiel ; Anthony Jimenez Other Interventions: Discharge Summary Assessment (RN) Last Done: 08/31/20 11:22 Coding Level of Care Code 76880 OBS Care - Discharge Diagnoses Serum lipase elevation R74.8 Sore throat J02.9
== END 2020-08-31 11:53 | disposition home or self-care (01) ==
LOC: 3W 12:31 → ED 12:31 → SUATTDRO 19:45 → 3W 20:39